=== PATIENT | male | born 2000 | race Two or more races ===

== ENCOUNTER 2022-01-05 02:08 | Emergency (ER) | payer MEDICAID ==
[~2022-01-05] VITALS: Ht 170.2 cm; Wt 62.4 kg
[2022-01-05 02:08] VITALS: BP 118/76
== END 2022-01-05 03:49 | disposition home or self-care (01) ==
LOC: ER 02:08
DX: M79.631 Pain in right forearm (principal)
CPT/HCPCS: 73090